=== PATIENT | male | born 1970 | race Caucasian/White ===

== ENCOUNTER 2021-05-08 05:17 | Day surgery (SDC) | payer BC, OTHER ==
[2021-05-07 11:34] VITALS: BMI 36.3
[2021-05-08] MEDS ORDERED: MIDAZOLAM HCL 2 MG/2 ML SINGLE DOSE VIAL ONE ×5 (11:45→16:27)
[2021-05-08] MEDS ORDERED: PROPOFOL 20 ML ONE (11:45)
[2021-05-08] MEDS ORDERED: SUCCINYLCHOLINE CHLORIDE 200 MG/10 ML SYRINGE ONE (11:46)
[2021-05-08] MEDS ORDERED: BUPIVACAINE HCL/PF 0.5% (5MG/ML) 10 ML VIAL ONE (12:39)
[2021-05-08] MEDS ORDERED: ROPIVACAINE HCL 0.5% 30ML VIAL ONE (12:40)
[2021-05-08] MEDS ORDERED: ceFAZolin SODIUM 1 GM VIAL ONE (13:38)
[2021-05-08] MEDS ORDERED: DEXAMETHASONE SOD PHOSPHATE 4 MG/1 ML VIAL ONE (13:38)
[2021-05-08] MEDS ORDERED: ceFAZolin SODIUM 1 GM VIAL IVPB ONE (13:40)
[2021-05-08] MEDS ORDERED: PROMETHAZINE HCL 25 MG/1 ML VIAL IVPUSH PRN (15:56)
[2021-05-08] MEDS ORDERED: ONDANSETRON 4 MG/2 ML VIAL IVPUSH PRN (15:56)
[2021-05-08] MEDS ORDERED: LACTATED RINGERS SOLUTION 1,000 ML IV SCH (16:00)
[2021-05-08 20:16] VITALS: BP 143/75; PULSE 78; TEMP 98.2
== END 2021-05-08 20:05 | disposition home or self-care (01) ==
LOC: JASU-SURG 05:17
PROVIDERS: ATTEND Podiatrist Foot Surgery
PROC: 0QSL04Z Reposition Right Tarsal with Internal Fixation Device, Open Approach (ICD-10-PCS; 2021-05-08)
PROC: 0LNV0ZZ Release Right Foot Tendon, Open Approach (ICD-10-PCS; principal; 2021-05-08 12:00)
DX: M21.171 Varus deformity, not elsewhere classified, right ankle (principal); M21.541 Acquired clubfoot, right foot
CPT/HCPCS: 28300; 28485; 28715; C1713; 73610-TC-RT-FY; 73630-TC-RT-FY; 76000-TC-FY; 82962; 94760